=== PATIENT | female | born 1960 | race African-American/Black ===

== ENCOUNTER 2017-03-19 16:56 | Emergency (ER) | payer OTHER ==
[~2017-03-19] VITALS: Ht 165.1 cm; Wt 74.8 kg
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
[2017-03-19] MEDS ORDERED: MORPHINE SULFATE 4 MG/ML DISP.SYRIN. IM ONE ×2 (18:15→20:00)
[2017-03-19 19:06] VITALS: BP 147/77
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
[2017-03-19] MEDS ORDERED: CYCL5TAB PO (20:19)
[2017-03-19] MEDS ORDERED: HYDR-971 PO (20:19)
== END 2017-03-19 20:29 | disposition home or self-care (01) ==
LOC: ER 16:56
DX: S16.1XXA Strain of muscle, fascia and tendon at neck level, initial encounter (principal); R51 Headache; I10 Essential (primary) hypertension; Z90.710 Acquired absence of both cervix and uterus; V49.60XA Unspecified car occupant injured in collision with unspecified motor vehicles in traffic accident, initial encounter; Y93.89 Activity, other specified; Y92.410 Unspecified street and highway as the place of occurrence of the external cause; Y99.8 Other external cause status
CPT/HCPCS: 70450; 72125; 96372; 99284; J2270

== ENCOUNTER 2018-08-16 19:35 | Emergency (ER) | payer OTHER ==
[~2018-08-16] VITALS: Ht 165.1 cm; Wt 67.6 kg
[~2018-08-16 19:35] MED LIST: CYCL5TAB PO; HYDR-971 PO
[2018-08-16 19:45] VITALS: BP 177/79
--- NOTE | 2018-08-16 20:11 | PHYS DOC ---
Past Medical History Past Medical History: Hypertension Past Surgical History: Hysterectomy Alcohol Use: Occasionally Drug Use: None Adult General Chief Complaint Chief Complaint: SORE THROAT HPI HPI Patient is a 58 year old female with history of hypertension, sinus surgery, who presents today complaining of a sore throat and cough for 2 days. Patient denies any fever or nasal congestion. Review of Systems Review of Systems Constitutional: Denies fever or chills [] Eyes: Denies change in visual acuity, redness, or eye pain [] HENT: Reports sore throat, denies nasal congestion Respiratory: Reports cough, denies shortness of breath [] Cardiovascular: No additional information not addressed in HPI [] GI: Denies abdominal pain, nausea, vomiting, bloody stools or diarrhea [] : Denies dysuria or hematuria [] Musculoskeletal: Denies back pain or joint pain [] Integument: Denies rash or skin lesions [] Neurologic: Denies headache, focal weakness or sensory changes [] All other systems were reviewed and found to be within normal limits, except as documented in this note. Allergies Allergies Allergies Coded Allergies Type Severity Reaction Last Updated Verified No Known Drug Allergies 03/19/17 No Physical Exam Physical Exam Constitutional: Well developed, well nourished, no acute distress, non-toxic appearance. [] HENT: Normocephalic, atraumatic, bilateral external ears normal, oropharynx moist, no oral exudates, nose normal. [] Eyes: PERRLA, EOMI, conjunctiva normal, no discharge. [] Neck: Normal range of motion, no tenderness, supple, no stridor. [] Cardiovascular:Heart rate regular rhythm, no murmur [] Lungs & Thorax: Bilateral breath sounds clear to auscultation [] Abdomen: Bowel sounds normal, soft, no tenderness, no masses, no pulsatile masses. [] Skin: Warm, dry, no erythema, no rash. [] Back: No tenderness, no CVA tenderness. [] Extremities: No tenderness, no cyanosis, no clubbing, ROM intact, no edema. [] Neurologic: Alert and oriented X 3, normal motor function, normal sensory function, no focal deficits noted. [] Psychologic: Affect normal, judgement normal, mood normal. [] Current Patient Data Vital Signs Vital Signs Date Time Temp Pulse Resp B/P (MAP) Pulse Ox O2 Delivery O2 Flow Rate FiO2 11/8/18 19:45 98.5 72 20 177/79 (111) 100 Room Air 98.5 EKG EKG [] Radiology/Procedures Radiology/Procedures [] Course & Med Decision Making Course & Med Decision Making Pertinent Labs and Imaging studies reviewed. (See chart for details) This is a 58-year-old female patient presenting to the ED today with sore throat and a cough for 2 days. Chest x-ray interpreted by is negative for any acute findings. Negative rapid strep. Symptoms are likely viral bronchitis. Discharged with albuterol inhaler, prednisone for 5 days and Tessalon Perles. Saltwater gargles encouraged. Tylenol or Motrin for pain or fever. Blood pressure arrival to the ED was 177/79, patient states she has not taken her amlodipine for today. Advised to take her blood pressure medicines as soon as she gets home. Follow-up with PCP in one week. Dragon Disclaimer Dragon Disclaimer This electronic medical record was generated, in whole or in part, using a voice recognition dictation system. Departure Departure Impression: Primary Impression: Acute viral bronchitis Additional Impression: High blood pressure Disposition: 01 HOME, SELF-CARE Condition: STABLE Referrals: UNKNOWN PCP NAME (PCP) Follow-up with the primary care doctor in 1-2 weeks Patient Instructions: Acute Bronchitis, [id number], Hypertension Additional Instructions: You were evaluated in the emergency room for symptoms consistent with viral bronchitis. Take the prescribed medications as ordered. Ensure you take your blood pressure medicine as soon as you get home. Follow-up with your own doctor in 1-2 weeks. Use saltwater gargles as needed for sore throat. Take Tylenol or Motrin as needed for pain or fever. Come back to the emergency room at any point symptoms worsen. Scripts Prednisone (PREDNISONE) 50 Mg Tablet 1 TAB PO DAILY, #5 TAB Prov: OSMANY PARHAM APRN 08/16/18 Benzonatate (TESSALON PERLE) 100 Mg Capsule 1 CAP PO TID, #30 CAP Prov: OSMANY PARHAM [employer] 08/16/18 Albuterol Sulfate (VENTOLIN HFA INHALER) 18 Gm Hfa.aer.ad 2 PUFF INH Q4HRS for FOR ASTHMA, #1 INHALER 0 Refills Prov: OSMANY PARHAM APRN 08/16/18 Problem Qualifiers Additional Impression: High blood pressure Hypertension type: unspecified Qualified Codes: I10 - Essential (primary) hypertension OSMANY PARHAM APRN Aug 16, 2018 20:11
--- NOTE | 2018-08-16 20:25 | RAD ---
EXAM: Chest, 2 views. HISTORY: Chest pain. COMPARISON: None. FINDINGS: 2 views of chest are obtained. There is no infiltrate, pleural effusion or pneumothorax. The heart is normal in size. There are few calcified granulomas. IMPRESSION: No acute pulmonary finding. Electronically signed by: Earline Carter MD (08/16/2018 8:22 PM) [facility]
[2018-08-16] MEDS ORDERED: PRED50TA PO (20:30)
[2018-08-16] MEDS ORDERED: BENZ100C PO (20:30)
[2018-08-16] MEDS ORDERED: VENTOLIN HFA18 GM INH (20:30)
== END 2018-08-16 20:42 | disposition home or self-care (01) ==
LOC: ER 19:35
DX: J20.8 Acute bronchitis due to other specified organisms (principal); I10 Essential (primary) hypertension
CPT/HCPCS: 71046; 87070; 87880; 99285-25

== ENCOUNTER 2019-11-13 16:54 | Emergency (ER) | payer OTHER ==
[~2019-11-13] VITALS: Ht 165.1 cm; Wt 67.2 kg
[~2019-11-13 16:54] MED LIST changes: +BENZ100C PO; +HYDR-3164 PO; -HYDR-971 PO; +PRED50TA PO; +VENTOLIN HFA18 GM INH
[2019-11-13 18:10] VITALS: BP 161/75
== END 2019-11-13 19:03 | disposition left against medical advice (07) ==
LOC: ER 16:54
DX: R51 Headache (principal); Z53.21 Procedure and treatment not carried out due to patient leaving prior to being seen by health care provider